=== PATIENT | female | born 1940 | race African-American/Black ===

== ENCOUNTER 2017-12-22 01:46 | Emergency (ER) | payer OTHER ==
[2017-12-22] MEDS: IV NORMAL SALINE 1000ML BAG 1,000 ML IV (02:00)
[2017-12-22 02:45] LABS: ADD MAN DIFF? NO
[2017-12-22 02:48] LABS: BASO % 0 % (0-3); EOS % 0 % (0-3); HEMATOCRIT 44.5 % (36.0-47.0); HEMOGLOBIN 14.6 g/dL (12.0-15.5); LYMPH # 2.5 x10^3/uL (1.0-4.8); LYMPH % 25 % (24-48); MEAN CORPUSCULAR HEMOGLOBIN 29 pg (25-35); MEAN CORPUSCULAR HGB CONC 33 g/dL (31-37); MEAN CORPUSCULAR VOLUME 88 fL (79-100); MONO # 0.5 x10^3/uL (0.0-1.1); MONO % 5 % (0-9); NEUT # 6.9 x10^3uL (1.8-7.7); NEUT % 70 % (31-73); PLATELET COUNT 163 x10^3/uL (140-400); RED BLOOD COUNT 5.04 x10^6/uL (3.50-5.40); RED CELL DISTRIBUTION WIDTH 14.6 % (11.5-14.5); WHITE BLOOD COUNT 9.9 x10^3/uL (4.0-11.0)
[2017-12-22 03:01] LABS: INR 1.1 (0.8-1.1); PROTHROMBIN TIME PATIENT 13.2 SEC (11.7-14.0)
[2017-12-22 03:02] LABS: ANION GAP 9 (6-14); BLOOD UREA NITROGEN 33 mg/dL (7-20); BUN/CREATININE RATIO 30 (6-20); CALCIUM 9.4 mg/dL (8.5-10.1); CARBON DIOXIDE 26 mmol/L (21-32); CHLORIDE 105 mmol/L (98-107); CREATININE 1.1 mg/dL (0.6-1.0); GFR 58.6; GLUCOSE 134 mg/dL (70-99); PARTIAL THROMBOPLASTIN TIME 27 SEC (24-38); POTASSIUM 3.8 mmol/L (3.5-5.1); SODIUM 140 mmol/L (136-145)
[2017-12-22 03:08] LABS: ALBUMIN 3.5 g/dL (3.4-5.0); ALBUMIN/GLOBULIN RATIO 0.9 (1.0-1.7); ALK PHOS 78 U/L (46-116); ALT (SGPT) 25 U/L (14-59); AST (SGOT) 27 U/L (15-37); TOTAL BILIRUBIN 0.7 mg/dL (0.2-1.0); TOTAL PROTEIN 7.5 g/dL (6.4-8.2)
[2017-12-22 03:09] LABS: LACTIC ACID 0.9 mmol/L (0.4-2.0)
[2017-12-22 03:12] LABS: TROPONINI < 0.017 ng/mL (0.000-0.055)
[2017-12-22 03:15] LABS: NT-PRO BNP 202 pg/mL (0-449)
[2017-12-22 03:15] LABS: CKMB INDEX 0.7 % (0-4); CREATINE KINASE 139 U/L (26-192)
[2017-12-22 04:16] LABS: BILIRUBIN,URINE NEGATIVE (NEG); CLARITY,URINE CLEAR; COLOR,URINE YELLOW; GLUCOSE,URINE NEGATIVE (NEG); NITRITE,URINE NEGATIVE (NEG); PROTEIN,URINE NEGATIVE (NEG-TRACE); UROBILINOGEN,URINE 0.2 mg/dL (0.2 mg/dL)
[2017-12-22 04:26] LABS: BACTERIA,URINE 0 /HPF (0-FEW); RBC,URINE OCC /HPF (0-2)
[2017-12-22 04:27] LABS: HYALINE CASTS, URINE MODERATE /HPF; SQUAMOUS EPITHELIAL CELL,UR OCC /LPF
[2017-12-22] MEDS: CEPHALEXIN 250 MG CAPSULE. PO (04:45)
== END 2017-12-22 04:55 | disposition home or self-care (01) ==
LOC: ER 01:46
DX: R55 Syncope and collapse (principal); N39.0 Urinary tract infection, site not specified; I10 Essential (primary) hypertension; Z90.710 Acquired absence of both cervix and uterus
CPT/HCPCS: 36415; 51701; 70450; 71046; 80053; 81001; 82553; 83605; 83735; 83880; 84484; 85025; 85610; 85730; 87086; 93005; 96360; 96361; 96365; 99285-25; J7030